=== PATIENT | male | born 1935 | race Two or more races ===

== ENCOUNTER 2024-03-04 08:58 | Outpatient (AMB) | payer OTHER, SELFPAY ==
[2024-03-04 09:23] VITALS: BP 149/76; PULSE 61; RESP 18; TEMP 35.7; O2SAT 95; BMI 23.4
--- NOTE | 2024-03-04 09:23 | PD.ORTHCLVIS ---
Vital signs 03/04/24 09:23 Height 1.75 m Height Method Stated Weight 72.121 kg Weight Measurement Method Standing Scale BMI 23.4 BP 149/76 H Blood Pressure Source Automatic Cuff Blood Pressure Location Left Upper Arm Position Sitting Respiration 18 Pulse 61 Pulse Source Monitor Temp 96.3 F L Temp Source Temporal Artery Scan Pulse Oximetry (%) 95 Oxygen Delivery Method Room Air Med/Allergies Allergies & Medications Allergies No Known Allergies Allergy (Unknown, Uncoded 03/04/24 09:24) Medication Reconciliation gabapentin 600 mg tablet 600 mg PO QDAY 10/15/17 [History Confirmed 03/04/24] loratadine 10 mg capsule 10 mg PO QDAY 10/15/17 [History Confirmed 03/04/24] montelukast 10 mg tablet 10 mg PO QPM 10/15/17 [History Confirmed 03/04/24] omeprazole 40 mg capsule,delayed release 40 mg PO QDAY 10/15/17 [History Confirmed 03/04/24] benazepril 10 mg tablet 10 mg PO QDAY 10/07/20 [History Confirmed 03/04/24] cromolyn 4 % eye drops 1 drp Both eyes QID 10/07/20 [History Confirmed 03/04/24] diclofenac sodium 50 mg tablet,delayed release 50 mg PO QDAY 10/07/20 [History Confirmed 03/04/24] linaclotide 145 mcg capsule (Linzess) 145 mcg PO QDAY 10/07/20 [History Confirmed 03/04/24] tamsulosin 0.4 mg capsule 0.4 mg PO QHS 10/07/20 [History Confirmed 03/04/24] Subjective Visit Visit for: new patient and knee (BILATERAL) Immunization / Flu Flu Vaccine in the Last 12 Months: Yes Flu Vaccine Exclusion Criteria: Already Received History of Present Illness Chief complaint: BILATERAL KNEE PAIN Patient is a pleasant 88-year-old male with bilateral knee pain and bilateral knee arthritis. We discussed nonoperative and operative options. Given his age, we recommend conservative treatment at this time. He has tried multiple injections in the past as well as therapy Pain Pain level (0-10): 3 Pain duration: ON AND OFF Pain location: inside (medial) and outside (lateral) Pain quality: sharp, dull and aching Pain timing: night and increases with activity Associated signs & symptoms: weakness, stiffness and other (specify) (POPPING) Ambulatory data Ambulatory device: walker Treatments Number of previous injections: 2 Improvement with previous injections: No Number of Physical Therapy sessions: 12 Improvement with PT: No Improvement with NSAIDS: no Review of Systems Review of Systems: All systems negative unless otherwise noted in HPI. Exam Exam Patient is in no acute distress and is cooperative with the examination today. Breathing is nonlabored. In no respiratory distress. Bilateral extremities were evaluated and demonstrates sensation intact to light touch. Palpable pedal pulses are present. No significant edema is present. Bilateral hips were examined. The patient has no pain with log roll of the hips. Internal rotation to 30 degrees and external rotation to 30 degrees is painless. Negative FADIR. The left knee was examined. The left knee is in [varus] alignment. Range of motion from [0-115] degrees. Knee is stable to varus and valgus as well as AP translation with <5mm. Patient has a [negative] McMurrays. There is [no] pain with patellofemoral compression and [no] crepitus noted. The knee is [tender] to palpation [medially]. The right knee was also examined. The right knee is in [varus] alignment. Range of motion from [0-120] degrees. Knee is stable to varus and valgus as well as AP translation with <5mm. Patient has a [negative] McMurrays. There is [no] pain with patellofemoral compression and [no] crepitus noted. The knee is [tender] to palpation [medially]. X-rays demonstrate significant joint space narrowing and right knee arthritis. There are osteophytes present Assessment and Plan Problem List (1) Degenerative arthritis of knee, bilateral: Status: Acute Plan: Patient is a pleasant 88-year-old male with bilateral knee pain and bilateral knee arthritis. We discussed nonoperative and operative options. Given His age, we will Continue with nonoperative treatment at this time. Recommend knee cortisone injections as patient would like to proceed with conservative treatment at this time. The risks and benefits of the procedure were reviewed with the patient and patient gave verbal consent to continue with the procedure. Procedure: performed by Dr. Key Using sterile technique the Bilateral knees were thoroughly prepped with alcohol, and approximately 1 cc of Kenalog 40 mg/mL and 4 cc of 1% lidocaine was injected into each knee without resistance into the medial tibial femoral joint space. The patient tolerated the procedure. Advanced Care Planning Discussion Advance care planning discussed with:: patient Office Procedures GNS Level of Care Nursing/Assessment Patient Status: Initial/New Patient Nursing Assessment/Reassesment: Medication Reconciliation, Update PMH in EMR and Vital Signs Coordination of Care: Complex Care and Chronic Disease 1-5, Education Complex Pt/Fam, Consent,records obtained, informed consent, 1 Ins Authorization, Lab and Imaging orders, Results/Orders obtained and Staff clarify orders Special Needs: Language special needs New Patient Charge New Patient Point Assignment: 1124 New Patient Point Charge: RESEARCH ENVIRONMENTAL SCIENTIST Level 4 (2431-9540) Past Medical History Past Medical History Have you ever been diagnosed with any of the following: Neurological Problems Seizures: No Cardiology Problems Congestive Heart Failure: No Hypertension: Yes Respiratory Problems Chronic Obstructive Pulmonary Disease (COPD): No Smoking: No Smoking Exposure: No Genital/Urinary Problems Renal Disease: No Endocrine Problems Diabetes Mellitus Type 1: No Diabetes Mellitus Type 2: No Other Problems Blood Transfusions: No Anesthesia Reactions: No
== END 2024-03-04 09:53 | disposition home or self-care (01) ==
PROVIDERS: PCP Family Medicine; Referring Provider Family Medicine; Supervising Provider Orthopaedic Surgery Adult Reconstructive Orthopaedic Surgery; Visit Provider Orthopaedic Surgery Adult Reconstructive Orthopaedic Surgery
DX: M17.0 Bilateral primary osteoarthritis of knee (principal); M25.562 Pain in left knee; M25.561 Pain in right knee; I10 Essential (primary) hypertension
CPT/HCPCS: 20610; 99204; J3301; J3490; G0463

== ENCOUNTER 2024-06-06 09:44 | Outpatient (AMB) | payer OTHER, SELFPAY ==
[2024-06-06 09:50] VITALS: BP 138/78; PULSE 77; RESP 18; TEMP 36.6; O2SAT 97; BMI 25.9
--- NOTE | 2024-06-06 09:50 | PD.ORTHCLVIS ---
Vital signs 06/06/24 09:50 Height 1.75 m Height Method Stated Weight 79.634 kg Weight Measurement Method Standing Scale BMI 25.9 BP 138/78 H Blood Pressure Source Automatic Cuff Blood Pressure Location Right Upper Arm Position Sitting Respiration 18 Pulse 77 Pulse Source Monitor Temp 97.8 F Temp Source Temporal Artery Scan Pulse Oximetry (%) 97 Oxygen Delivery Method Room Air Med/Allergies Allergies & Medications Allergies No Known Allergies Allergy (Unknown, Uncoded 06/06/24 09:52) Medication Reconciliation gabapentin 600 mg tablet 600 mg PO QDAY 10/15/17 [History Confirmed 06/06/24] loratadine 10 mg capsule 10 mg PO QDAY 10/15/17 [History Confirmed 06/06/24] montelukast 10 mg tablet 10 mg PO QPM 10/15/17 [History Confirmed 06/06/24] omeprazole 40 mg capsule,delayed release 40 mg PO QDAY 10/15/17 [History Confirmed 06/06/24] benazepril 10 mg tablet 10 mg PO QDAY 10/07/20 [History Confirmed 06/06/24] cromolyn 4 % eye drops 1 drp Both eyes QID 10/07/20 [History Confirmed 06/06/24] diclofenac sodium 50 mg tablet,delayed release 50 mg PO QDAY 10/07/20 [History Confirmed 06/06/24] linaclotide 145 mcg capsule (Linzess) 145 mcg PO QDAY 10/07/20 [History Confirmed 06/06/24] tamsulosin 0.4 mg capsule 0.4 mg PO QHS 10/07/20 [History Confirmed 06/06/24] Exam Exam Patient is in no acute distress and is cooperative with the examination today. Breathing is nonlabored. In no respiratory distress. Bilateral extremities were evaluated and demonstrates sensation intact to light touch. Palpable pedal pulses are present. No significant edema is present. Bilateral hips were examined. The patient has no pain with log roll of the hips. Internal rotation to 30 degrees and external rotation to 30 degrees is painless. Negative FADIR. The left knee was examined. The left knee is in [varus] alignment. Range of motion from [0-115] degrees. Knee is stable to varus and valgus as well as AP translation with <5mm. Patient has a [negative] McMurrays. There is [no] pain with patellofemoral compression and [no] crepitus noted. The knee is [tender] to palpation [medially]. The right knee was also examined. The right knee is in [varus] alignment. Range of motion from [0-120] degrees. Knee is stable to varus and valgus as well as AP translation with <5mm. Patient has a [negative] McMurrays. There is [no] pain with patellofemoral compression and [no] crepitus noted. The knee is [tender] to palpation [medially]. X-rays demonstrate significant joint space narrowing and right knee arthritis. There are osteophytes present Assessment and Plan Problem List (1) Degenerative arthritis of knee, bilateral: Status: Acute Plan: Patient is a pleasant 88-year-old male with bilateral knee pain and bilateral knee arthritis. We discussed nonoperative and operative options. Given His age, we will Continue with nonoperative treatment at this time. Recommend knee cortisone injections as patient would like to proceed with conservative treatment at this time. The risks and benefits of the procedure were reviewed with the patient and patient gave verbal consent to continue with the procedure. Procedure: performed by Dr. Key Using sterile technique the Bilateral knees were thoroughly prepped with alcohol, and approximately 1 cc of Kenalog 40 mg/mL and 4 cc of 1% lidocaine was injected into each knee without resistance into the medial tibial femoral joint space. The patient tolerated the procedure. Advanced Care Planning Discussion Advance care planning discussed with:: patient Office Procedures GNS Level of Care Nursing/Assessment Patient Status: Established Patient Nursing Assessment/Reassesment: Medication Reconciliation, Update PMH in EMR and Vital Signs Coordination of Care: Complex Care and Chronic Disease 1-5, Consent,records obtained, informed consent, 1 Ins Authorization, Results/Orders obtained and Staff clarify orders Established Patient Charge Established Patient Point Assignment: 90 Established Patient Point Charge: EP Level 3 (80-115) Surgical Proc/IM SQ injection Major Surgical Procedure: Yes (BILATERAL) Medication Given Medication Given Medication Given: Yes Documented Dose Given: 8 Route: Infiitration Office Meds Xylocaine 10 mg/mL (1 %) injection solution Performing Provider: David Key MD Performing Location: [facility] Administered by: David Key MD on 06/06/24 10:02 Dose Route Admin Location Dispensed Lot Number Expiration Date [facility] [employer] 40 mL Infiltration BILATERAL 40 mL [id number] 08/07/27 37525-231-60 FRESENI[employer] KAE[employer] triamcinolone acetonide 40 mg/mL suspension for injection Performing Provider: David Key MD Performing Location: [facility] Administered by: David Key MD on 06/06/24 10:04 Dose Route Admin Location Dispensed Lot Number Expiration Date [facility] [employer] 80 mg infiltration KNEE 2 mL [id number] 09/05/25 0375-8492-23 TEVA PARENTERAL MA Intake Visit Data Collection New Patient or Established: Established Patient (seen at [facility] within 3 years) Seen by Clinical Staff ONLY (RN/MA): No Fashion Patternmaker Required: Yes PCP or OBGYN visit in last 3 months: Yes Do You Feel Safe at Home: Yes Authorities Contacted: N/A Questionairres Past Medical History Past Medical History Have you ever been diagnosed with any of the following: Neurological Problems Seizures: No Cardiology Problems Congestive Heart Failure: No Hypertension: Yes Respiratory Problems Chronic Obstructive Pulmonary Disease (COPD): No Smoking: No Smoking Exposure: No Genital/Urinary Problems Renal Disease: No Endocrine Problems Diabetes Mellitus Type 1: No Diabetes Mellitus Type 2: No Other Problems Blood Transfusions: No Anesthesia Reactions: No Subjective Visit Visit for: follow up visit and knee (BILATERIAL) Immunization / Flu Flu Vaccine in the Last 12 Months: Yes Flu Vaccine Exclusion Criteria: Already Received History of Present Illness Chief complaint: bilateral knee pain Patient is a pleasant 88-year-old male with bilateral knee pain and bilateral knee arthritis. We discussed continue conservative treatment. The last injections lasted 3 months and he would like new ones Pain Pain level (0-10): 3 Pain duration: ON AND OFF Pain location: anterior Pain timing: night, increases with activity and stairs Associated signs & symptoms: none Ambulatory data Ambulatory device: walker Treatments Number of previous injections: 2 Improvement with previous injections: Yes Improvement with PT: No Improvement with NSAIDS: n/a Review of Systems Review of Systems: All systems negative unless otherwise noted in HPI.
== END 2024-06-06 10:14 | disposition home or self-care (01) ==
PROVIDERS: PCP Family Medicine; Referring Provider Family Medicine; Supervising Provider Orthopaedic Surgery Adult Reconstructive Orthopaedic Surgery; Visit Provider Orthopaedic Surgery Adult Reconstructive Orthopaedic Surgery
DX: M17.0 Bilateral primary osteoarthritis of knee (principal)
CPT/HCPCS: 20610; 99213; J3301; J3490; G0463

== ENCOUNTER → 2024-07-28 | Outpatient (CLI) | payer OTHER, SELFPAY ==
--- NOTE | 2024-07-28 | XR_ITS ---
Examination: Shoulder,left, 3 views Technique: Shoulder AP internal rotation, AP external rotation, Y view shoulder, 3 views Exam date and time :July 28, 2024 1115 hours INDICATIONS: Left shoulder pain beginning one month ago. FINDINGS: Prominent left shoulder calcific tendinitis Moderate narrowing glenohumeral joint No fracture or dislocation Prominent osteopenia IMPRESSION: Prominent left shoulder calcific tendinitis Moderate narrowing glenohumeral joint
== END | disposition home or self-care (01) ==
LOC: SDIM 09:59
PROVIDERS: PCP Family Medicine; Referring Provider Family Medicine; Visit Provider Family Medicine
DX: M75.32 Calcific tendinitis of left shoulder (principal); M25.812 Other specified joint disorders, left shoulder
CPT/HCPCS: 73030

== ENCOUNTER 2024-09-16 09:09 | Outpatient (AMB) | payer OTHER, SELFPAY ==
[2024-09-16 09:29] VITALS: BP 136/77; PULSE 66; RESP 18; TEMP 35.9; O2SAT 93; BMI 25.9
--- NOTE | 2024-09-16 09:29 | ORTHONT_ITS ---
Vital signs 09/16/24 09:29 Height 1.75 m Height Method Stated Weight 79.52 kg Weight Measurement Method Standing Scale BMI 25.9 BP 136/77 H Blood Pressure Source Automatic Cuff Blood Pressure Location Right Upper Arm Position Sitting Respiration 18 Pulse 66 Pulse Source Monitor Temp 96.7 F L Temp Source Temporal Artery Scan Pulse Oximetry (%) 93 L Oxygen Delivery Method Room Air Med/Allergies Allergies & Medications Allergies No Known Allergies Allergy (Unknown, Uncoded 09/16/24 09:30) Medication Reconciliation gabapentin 600 mg tablet 600 mg PO QDAY 10/15/17 [History Confirmed 09/16/24] loratadine 10 mg capsule 10 mg PO QDAY 10/15/17 [History Confirmed 09/16/24] montelukast 10 mg tablet 10 mg PO QPM 10/15/17 [History Confirmed 09/16/24] omeprazole 40 mg capsule,delayed release 40 mg PO QDAY 10/15/17 [History Confirmed 09/16/24] benazepril 10 mg tablet 10 mg PO QDAY 10/07/20 [History Confirmed 09/16/24] cromolyn 4 % eye drops 1 drp Both eyes QID 10/07/20 [History Confirmed 09/16/24] diclofenac sodium 50 mg tablet,delayed release 50 mg PO QDAY 10/07/20 [History Confirmed 09/16/24] linaclotide 145 mcg capsule (Linzess) 145 mcg PO QDAY 10/07/20 [History Confirmed 09/16/24] tamsulosin 0.4 mg capsule 0.4 mg PO QHS 10/07/20 [History Confirmed 09/16/24] Exam Exam Patient is in no acute distress and is cooperative with the examination today. Breathing is nonlabored. In no respiratory distress. Bilateral extremities were evaluated and demonstrates sensation intact to light touch. Palpable pedal pulses are present. No significant edema is present. Bilateral hips were examined. The patient has no pain with log roll of the hips. Internal rotation to 30 degrees and external rotation to 30 degrees is painless. Negative FADIR. The left knee was examined. The left knee is in [varus] alignment. Range of motion from [0-115] degrees. Knee is stable to varus and valgus as well as AP translation with <5mm. Patient has a [negative] McMurrays. There is [no] pain with patellofemoral compression and [no] crepitus noted. The knee is [tender] to palpation [medially]. The right knee was also examined. The right knee is in [varus] alignment. Range of motion from [0-120] degrees. Knee is stable to varus and valgus as well as AP translation with <5mm. Patient has a [negative] McMurrays. There is [no] pain with patellofemoral compression and [no] crepitus noted. The knee is [tender] to palpation [medially]. X-rays demonstrate significant joint space narrowing and right knee arthritis. There are osteophytes present Assessment and Plan Problem List (1) Degenerative arthritis of knee, bilateral: Status: Acute Plan: Patient is a pleasant 88-year-old male with bilateral knee pain and bilateral knee arthritis. We discussed nonoperative and operative options. Given His age, we will Continue with nonoperative treatment at this time. Recommend knee cortisone injections as patient would like to proceed with conservative treatment at this time. The risks and benefits of the procedure were reviewed with the patient and patient gave verbal consent to continue with the procedure. Procedure: performed by Dr. Key Using sterile technique the Bilateral knees were thoroughly prepped with alcohol, and approximately 1 cc of Kenalog 40 mg/mL and 4 cc of 1% lidocaine was injected into each knee without resistance into the medial tibial femoral joint space. The patient tolerated the procedure. Advanced Care Planning Discussion Advance care planning discussed with:: patient Office Procedures GNS Level of Care Nursing/Assessment Patient Status: Established Patient Nursing Assessment/Reassesment: Medication Reconciliation, Update PMH in EMR and Vital Signs Coordination of Care: Complex Care and Chronic Disease 1-5, Education Complex Pt/Fam, Consent,records obtained, informed consent, Results/Orders obtained and Staff clarify orders Special Needs: Language special needs ([place] ) Established Patient Charge Established Patient Point Assignment: 95 Established Patient Point Charge: EP Level 3 (80-115) Surgical Proc/IM SQ injection Major Surgical Procedure: Yes (BILATERAL KNEE INJECTION) Medication Given Medication Given Medication Given: Yes Documented Dose Given: 8 Route: Infiitration Medication Given Medication Given Medication Given: Yes Documented Dose Given: 2 Route: Infiitration Office Meds Xylocaine 10 mg/mL (1 %) injection solution Performing Provider: David Key MD Performing Location: [facility] Administered by: David Key MD on 09/16/24 09:39 Dose Route Admin Location Dispensed Lot Number Expiration Date [facility] Product Techn[employer] 40 mL Infiltration 40 mL [id number] 08/07/27 81681-599-56 BRITT SMYTH triamcinolone acetonide 40 mg/mL suspension for injection Performing Provider: David Key MD Performing Location: [facility] Administered by: David Key MD on 09/16/24 09:39 Dose Route Admin Location Dispensed Lot Number Expiration Date [facility] Product [employer] 80 mg intra-articular 2 mL [id number] 11/05/25 43411-654-87 SAVANNAH HUMPHREY CAROLINE TAVERAS Intake Visit Data Collection New Patient or Established: Established Patient (seen at [facility] within 3 years) Reason for Visit:: 3 MNTH BILAT KNEE INJECTIONS Seen by Clinical Staff ONLY (RN/MA): No Registration Specialist Required: Yes PCP or OBGYN visit in last 3 months: Yes Hx Now: No Do You Feel Safe at Home: Yes Authorities Contacted: N/A Questionairres Past Medical History Past Medical History Have you ever been diagnosed with any of the following: Neurological Problems Seizures: No Cardiology Problems Congestive Heart Failure: No Hypertension: Yes Respiratory Problems Chronic Obstructive Pulmonary Disease (COPD): No Smoking: No Smoking Exposure: No Genital/Urinary Problems Renal Disease: No Endocrine Problems Diabetes Mellitus Type 1: No Diabetes Mellitus Type 2: No Other Problems Blood Transfusions: No Anesthesia Reactions: No Subjective Visit Visit for: follow up visit and knee (BILATERAL KNEE INJECTION) Immunization / Flu Flu Vaccine in the Last 12 Months: Yes Flu Vaccine Exclusion Criteria: Already Received History of Present Illness Chief complaint: bilateral knee pain Patient is a pleasant 88-year-old male with bilateral knee pain and bilateral knee arthritis. We discussed continue conservative treatment. The last injections lasted 3 months and he would like new ones Personal History Red flag PMH: none Pain Pain level (0-10): 8 Pain duration: ON AND OFF Pain location: anterior Pain quality: dull and tingling Pain timing: night and increases with activity Associated signs & symptoms: weakness Ambulatory data Ambulatory device: walker Walking distance (minutes): 1 Treatments Number of previous injections: 3 Improvement with previous injections: Yes Number of Physical Therapy sessions: 2 Improvement with PT: No Improvement with NSAIDS: n/a Review of Systems Review of Systems: All systems negative unless otherwise noted in HPI.
== END 2024-09-16 09:51 | disposition home or self-care (01) ==
PROVIDERS: PCP Family Medicine; Referring Provider Family Medicine; Supervising Provider Orthopaedic Surgery Adult Reconstructive Orthopaedic Surgery; Visit Provider Orthopaedic Surgery Adult Reconstructive Orthopaedic Surgery
DX: M17.0 Bilateral primary osteoarthritis of knee (principal); M25.562 Pain in left knee; M25.561 Pain in right knee
CPT/HCPCS: 20610; 99213; J3301; J3490; G0463

== ENCOUNTER 2024-12-16 08:40 | Outpatient (AMB) | payer OTHER, SELFPAY ==
[2024-12-16 09:08] VITALS: BP 154/82; PULSE 71; RESP 20; TEMP 36.8; O2SAT 97; BMI 25.7
--- NOTE | 2024-12-16 09:08 | ORTHONT_ITS ---
Vital signs 12/16/24 09:08 Height 1.75 m Height Method Stated Weight 79.01 kg Weight Measurement Method Standing Scale BMI 25.7 BP 154/82 H Blood Pressure Source Automatic Cuff Blood Pressure Location Left Upper Arm Position Sitting Respiration 20 Pulse 71 Pulse Source Monitor Temp 98.3 F Temp Source Temporal Artery Scan Pulse Oximetry (%) 97 Oxygen Delivery Method Room Air Med/Allergies Allergies & Medications Allergies No Known Allergies Allergy (Unknown, Uncoded 12/16/24 09:12) Medication Reconciliation gabapentin 600 mg tablet 600 mg PO QDAY 10/15/17 [History Confirmed 12/16/24] loratadine 10 mg capsule 10 mg PO QDAY 10/15/17 [History Confirmed 12/16/24] montelukast 10 mg tablet 10 mg PO QPM 10/15/17 [History Confirmed 12/16/24] omeprazole 40 mg capsule,delayed release 40 mg PO QDAY 10/15/17 [History Confirmed 12/16/24] benazepril 10 mg tablet 10 mg PO QDAY 10/07/20 [History Confirmed 12/16/24] cromolyn 4 % eye drops 1 drp Both eyes QID 10/07/20 [History Confirmed 12/16/24] diclofenac sodium 50 mg tablet,delayed release 50 mg PO QDAY 10/07/20 [History Confirmed 12/16/24] linaclotide 145 mcg capsule (Linzess) 145 mcg PO QDAY 10/07/20 [History Confirmed 12/16/24] tamsulosin 0.4 mg capsule 0.4 mg PO QHS 10/07/20 [History Confirmed 12/16/24] Exam Exam Patient is in no acute distress and is cooperative with the examination today. Breathing is nonlabored. In no respiratory distress. Bilateral extremities were evaluated and demonstrates sensation intact to light touch. Palpable pedal pulses are present. No significant edema is present. Bilateral hips were examined. The patient has no pain with log roll of the hips. Internal rotation to 30 degrees and external rotation to 30 degrees is painless. Negative FADIR. The left knee was examined. The left knee is in [varus] alignment. Range of motion from [0-115] degrees. Knee is stable to varus and valgus as well as AP translation with <5mm. Patient has a [negative] Mc[place]rays. There is [no] pain with patellofemoral compression and [no] crepitus noted. The knee is [tender] to palpation [medially]. The right knee was also examined. The right knee is in [varus] alignment. Range of motion from [0-120] degrees. Knee is stable to varus and valgus as well as AP translation with <5mm. Patient has a [negative] Mc[place]rays. There is [no] pain with patellofemoral compression and [no] crepitus noted. The knee is [tender] to palpation [medially]. X-rays demonstrate significant joint space narrowing and right knee arthritis. There are osteophytes present Assessment and Plan Problem List (1) Degenerative arthritis of knee, bilateral: Status: Acute Plan: Patient is a pleasant 88-year-old male with bilateral knee pain and bilateral knee arthritis. We discussed nonoperative and operative options. Given His age, we will Continue with nonoperative treatment at this time. Recommend knee cortisone injection as patient would like to proceed with conservative treatment at this time. The risks and benefits of the procedure were reviewed with the patient and patient gave verbal consent to continue with the procedure. Procedure: performed by Dr. Key Using sterile technique the left knee was thoroughly prepped with alcohol, and approximately 1 cc of Depo-Medrol 80mg/mL and 4 cc of 0.2% ropivacaine was injected without resistance into the medial tibial femoral joint space. The patient tolerated the procedure. Recommend knee cortisone injection as patient would like to proceed with conservative treatment at this time. The risks and benefits of the procedure were reviewed with the patient and patient gave verbal consent to continue with the procedure. Procedure: performed by Dr. Key Using sterile technique the Right knee was thoroughly prepped with alcohol, and approximately 1 cc of Depo-Medrol 80mg/mL and 4 cc of 0.2% ropivacaine was injected without resistance into the medial tibial femoral joint space. The patient tolerated the procedure. Advanced Care Planning Discussion Advance care planning discussed with:: patient Office Procedures GNS Level of Care Nursing/Assessment Patient Status: Established Patient Nursing Assessment/Reassesment: Medication Reconciliation, Update PMH in EMR and Vital Signs Coordination of Care: Complex Care and Chronic Disease 1-5, Education Complex Pt/Fam, Consent,records obtained, informed consent, Results/Orders obtained and Staff clarify orders Special Needs: Language special needs Established Patient Charge Established Patient Point Assignment: 95 Established Patient Point Charge: EP Level 3 (80-115) Surgical Proc/IM SQ injection Major Surgical Procedure: Yes (BILATERAL KNEE INJECTION) Medication Given Medication Given Medication Given: Yes Documented Dose Given: 1 Route: Infiitration Medication Given Medication Given Medication Given: Yes Documented Dose Given: 1 Route: Infiitration Medication Given Medication Given Medication Given: Yes Documented Dose Given: 4 Route: Infiitration Medication Given Medication Given Medication Given: Yes Documented Dose Given: 4 Route: Infiitration Office Meds methylprednisolone acetate 80 mg/mL suspension for injection Performing Provider: David Key MD Performing Location: [facility] Administered by: David Key MD on 12/16/24 09:30 Dose Route Admin Location Dispensed Lot Number Expiration Date Pack age [facility] [employer] 80 mg intra-articular 1 mL [id number] 09/05/26 [address]-0 7 [id number] [employer] methylprednisolone acetate 80 mg/mL suspension for injection Performing Provider: David Key MD Performing Location: [facility] Administered by: David Key MD on 12/16/24 09:30 Dose Route Admin Location Dispensed Lot Number Expiration Date Pack age [facility] [place] [employer] 80 mg intra-articular 1 mL [id number] 09/05/26 [address]-1 7 [id number] [employer] ropivacaine (PF) 2 mg/mL (0.2 %) injection solution Performing Provider: David Key MD Performing Location: [facility] Administered by: David Key MD on 12/16/24 09:30 Dose Route Admin Location Dispensed Lot Number Expiration Date Pack age [facility] [place] [employer] 20 mL Infiltration 20 mL [id number] 05/08/27 29414-327-81 [id number] [employer] ropivacaine (PF) 2 mg/mL (0.2 %) injection solution Performing Provider: David Key MD Performing Location: [facility] Administered by: David Key MD on 12/16/24 09:30 Dose Route Admin Location Dispensed Lot Number Expiration Date Pack age [facility] [place] [employer] 20 mL Infiltration 20 mL [id number] 05/08/27 47013-857-56 [id number] [facility] Intake Visit Data Collection New Patient or Established: Established Patient (seen at [facility] within 3 years) Reason for Visit:: 3 MNTH BILAT KNEE INJECTIONS Seen by Clinical Staff ONLY (RN/MA): No Rn Clinical Documentation Required: Yes PCP or OBGYN visit in last 3 months: Yes Hx Now: No Do You Feel Safe at Home: Yes Authorities Contacted: N/A Questionairres Past Medical History Past Medical History Have you ever been diagnosed with any of the following: Neurological Problems Seizures: No Cardiology Problems Congestive Heart Failure: No Hypertension: Yes Respiratory Problems Chronic Obstructive Pulmonary Disease (COPD): No Smoking: No Smoking Exposure: No Genital/Urinary Problems Renal Disease: No Endocrine Problems Diabetes Mellitus Type 1: No Diabetes Mellitus Type 2: No Other Problems Blood Transfusions: No Anesthesia Reactions: No Subjective Visit Visit for: follow up visit and knee (BILATERAL KNEE INJECTION) Immunization / Flu Flu Vaccine in the Last 12 Months: Yes Flu Vaccine Exclusion Criteria: Already Received History of Present Illness Chief complaint: bilateral knee pain Patient is a pleasant 88-year-old male with bilateral knee pain and bilateral knee arthritis. We discussed continue conservative treatment. The last injections lasted 3 months and he would like new ones Personal History Red flag PMH: none Pain Pain level (0-10): 8 Pain duration: ON AND OFF Pain location: anterior Pain quality: dull and tingling Pain timing: night and increases with activity Associated signs & symptoms: weakness Ambulatory data Ambulatory device: walker Walking distance (minutes): 1 Treatments Number of previous injections: 3 Improvement with previous injections: Yes Number of Physical Therapy sessions: 2 Improvement with PT: No Improvement with NSAIDS: n/a Review of Systems Review of Systems: All systems negative unless otherwise noted in HPI.
== END 2024-12-16 09:27 | disposition home or self-care (01) ==
LOC: HODSRG 08:40
PROVIDERS: PCP Family Medicine; Referring Provider Family Medicine; Supervising Provider Orthopaedic Surgery Adult Reconstructive Orthopaedic Surgery; Visit Provider Orthopaedic Surgery Adult Reconstructive Orthopaedic Surgery
DX: M17.0 Bilateral primary osteoarthritis of knee (principal); M25.562 Pain in left knee; M25.561 Pain in right knee; I10 Essential (primary) hypertension
CPT/HCPCS: 20610; 99213; J1010; J2795; G0463